=== PATIENT | female | born 2000 | race Two or more races ===

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

== ENCOUNTER 2019-01-04 00:31 | Emergency (ER) | payer BC ==
[~2019-01-04] VITALS: Ht 162.6 cm; Wt 106.4 kg
--- NOTE | 2019-01-04 00:46 | NUR ---
Pt sitting on gurney, in apparent discomfort. Pt states that she feels like she needs something to "numb [her] before [she goes] to the bathroom." Pt states that she hasn't been drinking much water because she doesn't want to go to the bathroom. Pt also states that she's been holding her urine and now feels like she's having pain to b/l groin.
[2019-01-04] MEDS ORDERED: PHENAZOPYRIDINE 200 MG TABLET PO ONE (01:00)
[2019-01-04] MEDS ORDERED: FLUCONAZOLE 100 MG TABLET PO ONE (01:00)
[2019-01-04] MEDS ORDERED: PHENAZOPYRIDINE 200 MG TABLET ONE (01:17)
[2019-01-04] MEDS ORDERED: FLUCONAZOLE 100 MG TABLET ONE (01:17)
--- NOTE | 2019-01-04 01:23 | NUR ---
Pt medicated per MAR.
[2019-01-04 01:52] VITALS: BP 137/74
--- NOTE | 2019-01-04 01:53 | NUR ---
Patient/Caregiver given discharge instructions and they have confirmed that they understand the instructions. Patient ambulatory with steady gait.
== END 2019-01-04 01:54 | disposition home or self-care (01) ==
LOC: ED 00:41
DX: R30.0 Dysuria (principal); M54.5 Low back pain; R10.30 Lower abdominal pain, unspecified
CPT/HCPCS: 99283